=== PATIENT | female | born 1960 | race Caucasian/White ===

== ENCOUNTER 2016-11-26 00:47 | Day surgery (SDC) | payer OTHER ==
[~2016-11-26] VITALS: Ht 152.4 cm; Wt 61.7 kg
[~2016-11-26 00:47] MED LIST: ESOM40CA PO; GABA600T2 PO; META800T21 PO; NAPR500T3 PO; NORT25CA PO; OXYC30TA PO; SIMV20TA3 PO
[2016-11-26] MEDS ORDERED: NS 1000ML 1,000 ML ONE (05:15)
[2016-11-26 05:55] VITALS: BP 168/95
[2016-11-26] MEDS ORDERED: NS 1000ML 1,000 ML IV SCH (06:00)
[2016-11-26] MEDS ORDERED: DIPRIVAN IV ONE (07:22)
[2016-11-26] MEDS ORDERED: SUBLIMAZE ONE (07:22)
[2016-11-26] MEDS ORDERED: VERSED ONE (07:22)
[2016-11-26] MEDS ORDERED: DECADRON ONE (07:35)
[2016-11-26] MEDS ORDERED: LIDOCAINE 1% VIAL ONE (07:36)
[2016-11-26 08:23] VITALS: BP 143/89
[2016-11-26 08:25] VITALS: BP 145/58
[2016-11-26 08:40] VITALS: BP 145/58
--- NOTE | 2016-11-26 10:08 | OPH ---
DATE OF SURGERY: 11/26/2016 PROCEDURES: 1. C7-T1 interlaminar epidural steroid injection. 2. Fluoroscopic needle guidance. 3. Intraoperative cervical epidurogram. REASON FOR PROCEDURE: Cervical degenerative disc disease with radiculopathy. PHYSICIAN: Zehra Livingston MD MEDICATIONS INJECTED: 6 mL of Decadron and 2 mL sterile preservative-free normal saline. LOCAL ANESTHETIC INJECTED: 5 mL of 1% lidocaine. ANESTHESIA: MAC. ESTIMATED BLOOD LOSS: None. COMPLICATIONS: None. TECHNIQUE: Time-out was taken to identify the correct patient, procedure and site prior to starting the procedure. With the patient lying in prone position, the neck in slightly flexed position, the area was prepped and draped in the usual sterile fashion using DuraPrep and a fenestrated drape. The area was determined under fluoroscopic guidance. A 27-gauge 1.25 inch needle was used to anesthetize the needle entry site and subcutaneous tissues. The 18-gauge, 3.5-inch Tuohy needle was advanced to the ligamentum flavum using loss of resistance technique. Once the tip of the needle was thought to be in a desired position, an Omnipaque 180 was injected to confirm only epidural spread, no vascular runoff via AP and contralateral oblique views. The injectable was then injected slowly. The procedure was completed without complications and was tolerated well. The patient was monitored throughout the procedure. The patient was given postprocedure and discharge instructions to follow at home. The patient was discharged in stable condition. A followup appointment was made. PREPROCEDURE PAIN SCORE: 8/10. POSTPROCEDURE PAIN SCORE: 0/10. EPIDUROGRAM DIAGNOSTIC STUDY: DESCRIPTION OF PROCEDURE: The patient underwent cervical epidural steroid injection today. The epidural was observed at level of C7-T1 under AP and lateral fluoroscopic guidance. 2 mL of Omnipaque 180 contrast was injected that evenly spread from levels C6-T2 with posterior anterior dye spread bilaterally at C6-C7 and C7-T1. There appeared to be degree of spondylosis noted at both levels. The intervertebral disc height at the level was slightly less than normal. The neural foramen appeared to be patent. Hard copies of the images are on file. Zehra Livingston MD DR: ROBERT/shara JOB# [id number]
== END 2016-11-26 08:50 | disposition home or self-care (01) ==
LOC: SURG 00:47
PROVIDERS: ATTEND Anesthesiology
DX: M50.13 Cervical disc disorder with radiculopathy, cervicothoracic region (principal); M47.23 Other spondylosis with radiculopathy, cervicothoracic region; E66.3 Overweight; Z68.26 Body mass index [BMI] 26.0-26.9, adult; E78.5 Hyperlipidemia, unspecified; R56.9 Unspecified convulsions
CPT/HCPCS: 62321; J1100; J2001; J2250; J3010; J3490; J7030; Q9965; 77003